=== PATIENT | female | born 1995 | race American Indian/Alaskan Native ===

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

== ENCOUNTER 2017-04-15 22:08 | Emergency (ER) | payer SELFPAY ==
[2017-04-15] MEDS ORDERED: DUONEB *Not for PRN Use IH ONE (22:52)
[2017-04-16] MEDS ORDERED: PROVENTIL IH ONE ×2 (03:43→03:45)
[2017-04-16 05:51] VITALS: BP 126/79
[2017-04-16] MEDS ORDERED: DUONEB *Not for PRN Use IH ONE (07:20)
--- NOTE | 2017-04-16 08:07 | Emergency Department Report ---
Minor Respiratory - HPI Chief Complaint: Adult Asthma Stated Complaint: ASTHMA Time Seen by Provider: 04/16/17 07:19 Duration: 2 Days Severity: mild Minor Respiratory: Yes Able to Tolerate Fluids, Yes Shortness of Breath, Yes Fever, No Rhinorrhea, No Sore Throat, No Ear Pain, No Cough, No Sick Contacts, No Hemoptysis, No Chest Pain ED Review of Systems ROS: Stated complaint: ASTHMA Other details as noted in HPI Comment: All other systems reviewed and negative Respiratory: cough, wheezing ED Past Medical Hx - Past Medical History Previous Medical History?: Yes Hx Asthma: Yes Additional medical history: Trichomonas - Surgical History Past Surgical History?: No - Social History Smoking Status: Never Smoker Substance Use Type: None - Medications Home Medications: Home Medications Medication Instructions Recorded Confirmed Last Taken Type ALBUTEROL Inhaler [Proair] 2 puff IH QID PRN #1 inhalation 04/16/17 Unknown Rx Amoxicillin [Trimox CAP] 500 mg PO BID #20 capsule 04/16/17 Unknown Rx predniSONE [Deltasone] 50 mg PO QDAY #5 tab 04/16/17 Unknown Rx Minor Respiratory Exam - Exam General: Vital signs noted. No distress. Alert and acting appropriately. HEENT: Yes Moist Mucous Membranes, No Pharyngeal Erythema, No Pharyngeal Exudates, No Rhinorrhea, No Conjuctival Injection, No Frontal Tenderness, No Maxillary Tenderness Ear: Neither TM Bulge, Neither TM Erythema, Neither EAC Pain, Neither EAC Discharge Neck: Yes Supple, No Adenopathy Lungs: Yes Good Air Exchange, Yes Wheezes, No Ronchi, No Stridor, No Cough, No Labored Respirations, No Retractions, No Use of Accessory Muscles, No Other Abnormal Lung Sounds Heart: Yes Regular, No Murmur Abdomen: Yes Normal Bowel Sounds, No Tenderness, No Peritoneal Signs Skin: No Rash, No Edema Neurologic: Alert and oriented, no deficits. Musculoskeletal: Unremarkable. ED Course Vital Signs 04/15/17 04/15/17 04/15/17 22:46 22:52 23:02 Temperature 99.9 F H Pulse Rate 111 H Pulse Rate [ 84 89 Anterior Bilateral Throughout] Pulse Rate [ Posterior Left Lower Lobe] Respiratory 20 Rate Respiratory 16 16 Rate [Anterior Bilateral Throughout] Respiratory Rate [Posterior Left Lower Lobe] Blood Pressure 130/80 O2 Sat by Pulse 98 Oximetry 04/16/17 04/16/17 04/16/17 03:43 04:02 05:49 Temperature 98.6 F Pulse Rate 96 H Pulse Rate [ Anterior Bilateral Throughout] Pulse Rate [ 86 104 H Posterior Left Lower Lobe] Respiratory 16 Rate Respiratory Rate [Anterior Bilateral Throughout] Respiratory 16 18 Rate [Posterior Left Lower Lobe] Blood Pressure 126/79 O2 Sat by Pulse 99 Oximetry 04/16/17 07:48 Temperature Pulse Rate Pulse Rate [ Anterior Bilateral Throughout] Pulse Rate [ 92 H Posterior Left Lower Lobe] Respiratory Rate Respiratory Rate [Anterior Bilateral Throughout] Respiratory 16 Rate [Posterior Left Lower Lobe] Blood Pressure O2 Sat by Pulse Oximetry - Reevaluation(s) Reevaluation #1: 04/16/17 08:36 LONG WAIT IN ER THIS GILES 2 TX EARLIER REPEAT TX FOR MILD WHEEZE W SOLUMEDROL IM WITH MUCH IMPROVEMENT VSS NO FEVER HER 90 AMBULATORY AND TAKING PO PO DIFLUCAN PER REQUEST ED Medical Decision Making - Medical Decision Making SEE NOTE - Differential Diagnosis ASTHMA AE Critical care attestation.: If time is entered above; I have spent that time in minutes in the direct care of this critically ill patient, excluding procedure time. ED Disposition Clinical Impression: Asthma Disposition: DC-01 TO HOME OR SELFCARE Is pt being admited?: No Does the pt Need Aspirin: No Condition: Stable Instructions: Asthma (ED) Prescriptions: Amoxicillin [Trimox CAP] 500 mg PO BID #20 capsule predniSONE [Deltasone] 50 mg PO QDAY #5 tab Referrals: ANAYELI LIMON MD [Primary Care Provider] - 3-5 Days Time of Disposition: 08:05
== END 2017-04-16 08:24 | disposition home or self-care (01) ==
LOC: ED 22:08
DX: J45.909 Unspecified asthma, uncomplicated (principal)
CPT/HCPCS: 94640; 96372; 99283; J2930

== ENCOUNTER 2017-06-30 19:28 | Emergency (ER) | payer MEDICAID ==
[2017-06-30 20:37] LABS: HCG Qualitative,Urine Negative (Negative)
[2017-06-30 20:44] LABS: Bilirubin,Urine NEG (Negative); Blood,Urine MOD (Negative); Color,Urine Yellow (Yellow); Mucus,Urine 3+ /HPF; Protein,Urine <15 mg/dL mg/dL (Negative)
--- NOTE | 2017-06-30 22:57 | Emergency Department Report ---
ED Female HPI - General Chief complaint: Vaginal Bleeding Stated complaint: ABD PAIN, VAGINAL BLEEDING Time Seen by Provider: 06/30/17 21:33 Source: patient Mode of arrival: Ambulatory Limitations: No Limitations - History of Present Illness Initial comments: This is a 21 y.o. female that presents with vaginal bleeding and recent STD exposure. Patient reports LMP 06/18/2017. She started spotting yesterday with sharp cramps. She noticed large clots in the toilet yesterday. Reports pain as intermittent pain that is similar to normal cramps with menses. She is currently not having pain. The bleeding have a foul odor, which caused her to come in for evaluation. Reports being incarcerated 2 weeks ago and being tested for STDs on arrival. They told her she was positive for either gonorrhea or chlamydia, and vaginitis. She was started on azithromycin and flagyl and got released prior to completing treatment. She is unsure of how many days of treatment she received. She is still having cramping and foul discharge. She is concerned she may still have a STD. MD Complaint: vaginal bleeding -: days(s) (1) Location: suprapubic (cramping) Radiation: non-radiating Severity: mild Severity scale (0 -10): 0 Quality: cramping Consistency: intermittent Improves with: none Worsens with: menstrual period Are you Now?: No Last Menstrual Period: 06/18/17 (curretly spotting) EDC: 03/25/18 Associated Symptoms: vaginal discharge, vaginal bleeding, abdominal pain ( cramping). denies: nausea/vomiting, fever/chills, headaches, loss of appetite, dysuria, hematuria, rash, seizure, shortness of breath, syncope, weakness - Related Data Sexually active: Yes Previous Rx's Medication Instructions Recorded Last Taken Type ALBUTEROL Inhaler [Proair] 2 puff IH QID PRN #1 inhalation 04/16/17 Unknown Rx Amoxicillin [Trimox CAP] 500 mg PO BID #20 capsule 04/16/17 Unknown Rx predniSONE [Deltasone] 50 mg PO QDAY #5 tab 04/16/17 Unknown Rx Fluconazole [Diflucan] 150 mg PO ONCE #1 tablet 07/01/17 Unknown Rx medroxyPROGESTERone ACETATE 10 mg PO DAILY #10 tablet 03/08/18 Unknown Rx [Medroxyprogesterone Acetate] metroNIDAZOLE [Flagyl TAB] 500 mg PO Q12HR 7 Days #14 tab 07/01/17 Unknown Rx Allergies Allergy/AdvReac Type Severity Reaction Status Date / Time No Known Allergies Allergy Unverified 09/06/14 17:22 ED Review of Systems ROS: Stated complaint: ABD PAIN, VAGINAL BLEEDING Other details as noted in HPI Constitutional: denies: chills, fever Respiratory: denies: cough, shortness of breath, wheezing Cardiovascular: denies: chest pain, palpitations Gastrointestinal: abdominal pain (cramping). denies: nausea, vomiting, diarrhea , constipation Genitourinary: abnormal menses. denies: urgency, dysuria, frequency, hematuria , discharge Musculoskeletal: denies: back pain, joint swelling, arthralgia Neurological: denies: headache, weakness, paresthesias Psychiatric: denies: anxiety, depression ED Past Medical Hx - Past Medical History Hx Asthma: Yes Additional medical history: Trichomonas - Social History Smoking Status: Current Some Day Smoker Substance Use Type: None - Medications Home Medications: Home Medications Medication Instructions Recorded Confirmed Last Taken Type ALBUTEROL Inhaler [Proair] 2 puff IH QID PRN #1 inhalation 04/16/17 Unknown Rx Amoxicillin [Trimox CAP] 500 mg PO BID #20 capsule 04/16/17 Unknown Rx predniSONE [Deltasone] 50 mg PO QDAY #5 tab 04/16/17 Unknown Rx Fluconazole [Diflucan] 150 mg PO ONCE #1 tablet 07/01/17 Unknown Rx medroxyPROGESTERone ACETATE 10 mg PO DAILY #10 tablet 07/01/17 Unknown Rx [Medroxyprogesterone Acetate] metroNIDAZOLE [Flagyl TAB] 500 mg PO Q12HR 7 Days #14 tab 07/01/17 Unknown Rx ED Physical Exam - General Limitations: No Limitations General appearance: alert, in no apparent distress - Respiratory Respiratory exam: Present: normal lung sounds bilaterally. Absent: respiratory distress, wheezes, rales, rhonchi, stridor - Cardiovascular Cardiovascular Exam: Present: regular rate, normal rhythm, normal heart sounds. Absent: systolic murmur, diastolic murmur, rubs, gallop - GI/Abdominal GI/Abdominal exam: Present: soft, normal bowel sounds. Absent: distended, tenderness, guarding, rebound, rigid, organomegaly, mass - External exam: Present: normal external exam. Absent: erythema, swelling, lesions, lacerations, ecchymosis, bleeding Speculum exam: Present: vaginal bleeding. Absent: erythema, vaginal discharge, cervical discharge, tissue, laceration Bi-manual exam: Present: normal bi-manual exam - Neurological Exam Neurological exam: Present: alert, oriented X3, normal gait - Psychiatric Psychiatric exam: Present: normal affect, normal mood ED Course Vital Signs 06/30/17 19:57 Temperature 98.2 F Pulse Rate 95 H Respiratory 20 Rate Blood Pressure 127/89 O2 Sat by Pulse 100 Oximetry ED Medical Decision Making - Radiology Data Radiology results: report reviewed US of abdomen and transvaginal IMPRESSION: Minimal fluid in the endocervical canal. Otherwise unremarkable appearing myometrium and endometrial stripe. Benign-appearing follicles both ovaries. No evidence of ovarian torsion No evidence of free fluid in the pelvis. - Medical Decision Making This is a 21 y.o. female presents with vaginal bleeding and cramping for 1 day. LMP 06/23/2017. Diagnosed with gonorrhea, or chylamida, and vaginitis while incarcerated 2 weeks ago. Started treatment and didn't complete flagyl. Given azithromycin and unsure of other med, possibly rocephin while incarcerated. Patient was examined by me. Ordered UA, HCG, G/C, and obtained wet prep via pelvic exam, results positive for acute vaginitis. US of abdomen, Minimal fluid in the endocervical canal. Otherwise unremarkable appearing myometrium and endometrial stripe. Benign-appearing follicles both ovaries. No evidence of ovarian torsion. No evidence of free fluid in the pelvis. Discussed results with patient. Start metronidazole 500 mg po bid x 7 days. Discharged home in stable condition. Discussed prevention options. F/U with [facility]. Critical care attestation.: If time is entered above; I have spent that time in minutes in the direct care of this critically ill patient, excluding procedure time. ED Disposition Clinical Impression: Acute vaginitis, Dysfunctional uterine bleeding Disposition: TO HOME OR SELFCARE Is pt being admited?: No Does the pt Need Aspirin: No Condition: Stable Instructions: Vaginitis (ED), Dysfunctional Uterine Bleeding (ED) Additional Instructions: Avoid drinking alcohol for 24 hours after completing flagyl. Take medroxyprogesterone daily for 5-10 days to help stop bleeding. Continue safe sexual intercourse. Follow up with LABORER/KEY MAN or health department in 24-72 hours. Prescriptions: Fluconazole [Diflucan] 150 mg PO ONCE #1 tablet medroxyPROGESTERone ACETATE [Medroxyprogesterone Acetate] 10 mg PO DAILY #10 tablet metroNIDAZOLE [Flagyl TAB] 500 mg PO Q12HR 7 Days #14 tab Referrals: LILIANA LECHUGA MD [Staff Physician] - 3-5 Days [facility]OL [Provider Group] - 3-5 Days Time of Disposition: 00:59 Print Language: [place] ISLANDER
--- NOTE | 2017-07-01 00:14 | Ultrasound Report ---
FINAL REPORT EXAM: US TRANSVAGINAL HISTORY: vaginal bleeding TECHNIQUE: Transvaginal imaging was obtained of the pelvis including Doppler interrogation of the adnexae. FINDINGS: The uterus is anteverted measuring 7.2 cm x 3 cm by 3.8 cm. The myometrium is homogeneous. The endometrial thickness is 1.2 mm. There is minimal fluid in the endocervical canal. Free fluid is not seen. The right ovary measures 4.3 cm x 2 cm x 2.2 cm. There are benign-appearing follicles in the right ovary the largest measuring 1.7 cm in diameter. The blood flow is normal to the right ovary. The left ovary measures 3.3 cm x 1.8 cm x 2.4 cm and contains benign follicles. Blood flow is normal to left ovary. IMPRESSION: Minimal fluid in the endocervical canal. Otherwise unremarkable appearing myometrium and endometrial stripe. Benign-appearing follicles both ovaries. No evidence of ovarian torsion No evidence of free fluid in the pelvis.
--- NOTE | 2017-07-01 00:17 | Ultrasound Report ---
FINAL REPORT EXAM: US PELVIC COMPLETE HISTORY: vaginal bleeding TECHNIQUE: Transabdominal imaging was obtained of the pelvis including Doppler interrogation of the adnexa. FINDINGS: The uterus is anteverted measuring 7.2 cm x 3 cm x 3.9 cm. The endometrial thickness is 1.2 mm. There minimal fluid in the endocervical canal. The myometrium is homogeneous. Free fluid is not seen. The right ovary is normal in size measuring 4.3 cm x 2 cm x 2.2 cm. There are benign follicles in the right ovary the largest measuring 1.7 cm in diameter. The blood flow is normal to the right ovary. The left ovary is normal size contour and echotexture measuring 3.3 cm x 1.8 cm x 2.4 cm. There are benign-appearing follicles left ovary. IMPRESSION: Minimal fluid in the endocervical canal. Otherwise normal-appearing endometrium and myometrium. Benign-appearing follicles both ovaries. No evidence of ovarian torsion. No evidence of free fluid in the pelvis.
[2017-07-01 02:38] VITALS: BP 130/79
== END 2017-07-01 01:20 | disposition home or self-care (01) ==
LOC: ED 19:28
DX: N93.8 Other specified abnormal uterine and vaginal bleeding (principal); N76.0 Acute vaginitis; J45.909 Unspecified asthma, uncomplicated; F17.200 Nicotine dependence, unspecified, uncomplicated
CPT/HCPCS: 76830; 76856; 81001; 81025; 87210; 87591

== ENCOUNTER 2018-07-12 17:37 | Emergency (ER) | payer OTHER ==
[2018-07-12 18:03] VITALS: BP 120/81
--- NOTE | 2018-07-12 18:06 | Emergency Department Report ---
Chief Complaint: Chest Pain Stated Complaint: CHEST PALPITATION Time Seen by Provider: 07/12/18 18:01 - HPI History of Present Illness: This is a 22 y.o. female that presents with palpitations and spasms to abdomen x 1 month. She took a home test which was negative today. Patient was recently diagnosed with BV and vaginal yeast infection. She took her last dose of medication today. - ROS Review of Systems: palpitations - Exam Vital Signs: Vital Signs 07/12/18 18:02 Temperature 97.9 F Pulse Rate 78 Respiratory 18 Rate Blood Pressure 120/81 O2 Sat by Pulse 100 Oximetry MSE screening note: Focused history and physical exam performed. Due to findings the following was ordered: EKG & CXR Fast track for further evaluation. ED Disposition for MSE Condition: Stable
--- NOTE | 2018-07-12 18:48 | XRay Report ---
PROCEDURE: XR CHEST 1V AP TECHNIQUE: Single view HISTORY: Chest Pain COMPARISONS: None FINDINGS: Trachea midline. Heart size normal. No pneumothorax. No sizable effusion. No acute airspace disease. Mild scoliosis. No acute bony abnormality. IMPRESSION: No active pulmonary disease.. This document is electronically signed by Evelio Jacobo MD., July 12 2018 06:46:03 PM ET
[2018-07-12] MEDS ORDERED: ALUM-MAG HYDROX-SIMETH 200-200-20MG/5ML PO ONE (19:53)
[2018-07-12] MEDS ORDERED: LIDOCAINE VISCOUS 2% PO ONE (19:53)
[2018-07-12] MEDS ORDERED: ZOFRAN ODT PO ONE (19:53)
--- NOTE | 2018-07-12 19:53 | Emergency Department Report ---
ED General Adult HPI - General Chief complaint: Chest Pain Stated complaint: CHEST PALPITATION Time Seen by Provider: 07/12/18 18:01 Source: patient Mode of arrival: Ambulatory Limitations: No Limitations - History of Present Illness Initial comments: This is 22-year-old female who presents with chest pain palpitations intermittently for the past 2-3 months patient does smoke THC this does have a history of asthma there is no diaphoresis no nausea vomiting no chest pain at this time chest pain is for routine exacerbated by activity and movement patient does endorse increasing GERD symptoms palpitations started is not taking Pepcid at this time by history. Unknown there is no productive cough no wheezing at this time Onset/Timin -: month(s) Location: chest Radiation: non-radiation Severity scale (0 -10): 3 Quality: sharp Consistency: intermittent Improves with: rest Worsens with: movement Associated Symptoms: chest pain, cough Treatments Prior to Arrival: none - Related Data Previous Rx's Medication Instructions Recorded Last Taken Type ALBUTEROL Inhaler (OR & NICU) 2 puff IH QID PRN #1 inhalation 04/16/17 Unknown Rx [Proair] Amoxicillin [Trimox CAP] 500 mg PO BID #20 capsule 04/16/17 Unknown Rx predniSONE [Deltasone] 50 mg PO QDAY #5 tab 04/16/17 Unknown Rx Fluconazole [Diflucan] 150 mg PO ONCE #1 tablet 07/01/17 Unknown Rx medroxyPROGESTERone ACETATE 10 mg PO DAILY #10 tablet 07/01/17 Unknown Rx [Medroxyprogesterone Acetate] metroNIDAZOLE [Flagyl TAB] 500 mg PO Q12HR 7 Days #14 tab 07/01/17 Unknown Rx Metoclopramide [Reglan] 10 mg PO ACHS PRN #30 tablet 07/12/18 Unknown Rx Naproxen [Naprosyn] 500 mg PO BID PRN #30 tablet 07/12/18 Unknown Rx diphenhydrAMINE [Benadryl CAP] 25 mg PO Q6HR PRN #30 capsule 07/12/18 Unknown Rx Allergies Allergy/AdvReac Type Severity Reaction Status Date / Time No Known Allergies Allergy Unverified 09/06/14 17:22 ED Review of Systems ROS: Stated complaint: CHEST PALPITATION Other details as noted in HPI Constitutional: denies: chills, fever Eyes: denies: eye pain, eye discharge, vision change ENT: denies: ear pain, throat pain Respiratory: denies: cough, shortness of breath, wheezing Cardiovascular: chest pain, palpitations Endocrine: no symptoms reported Gastrointestinal: denies: abdominal pain, nausea, vomiting, diarrhea, constipation, hematemesis Genitourinary: denies: urgency, dysuria, discharge Musculoskeletal: denies: back pain, joint swelling, arthralgia Skin: denies: rash, lesions Neurological: denies: headache, weakness, paresthesias Psychiatric: denies: anxiety, depression Hematological/Lymphatic: denies: easy bleeding, easy bruising ED Past Medical Hx - Past Medical History Previous Medical History?: Yes Hx Asthma: Yes Additional medical history: Trichomonas - Surgical History Past Surgical History?: No - Social History Smoking Status: Never Smoker Substance Use Type: Alcohol - Medications Home Medications: Home Medications Medication Instructions Recorded Confirmed Last Taken Type ALBUTEROL Inhaler (OR & NICU) 2 puff IH QID PRN #1 inhalation 04/16/17 Unknown Rx [Proair] Amoxicillin [Trimox CAP] 500 mg PO BID #20 capsule 04/16/17 Unknown Rx predniSONE [Deltasone] 50 mg PO QDAY #5 tab 04/16/17 Unknown Rx Fluconazole [Diflucan] 150 mg PO ONCE #1 tablet 07/01/17 Unknown Rx medroxyPROGESTERone ACETATE 10 mg PO DAILY #10 tablet 07/01/17 Unknown Rx [Medroxyprogesterone Acetate] metroNIDAZOLE [Flagyl TAB] 500 mg PO Q12HR 7 Days #14 tab 07/01/17 Unknown Rx Metoclopramide [Reglan] 10 mg PO ACHS PRN #30 tablet 07/12/18 Unknown Rx Naproxen [Naprosyn] 500 mg PO BID PRN #30 tablet 07/12/18 Unknown Rx diphenhydrAMINE [Benadryl CAP] 25 mg PO Q6HR PRN #30 capsule 07/12/18 Unknown Rx ED Physical Exam - General Limitations: No Limitations General appearance: alert, in no apparent distress - Head Head exam: Present: atraumatic, normocephalic - Eye Eye exam: Present: normal appearance, PERRL, EOMI Pupils: Present: normal accommodation - ENT ENT exam: Present: normal orophraynx, mucous membranes moist, TM's normal bilaterally, normal external ear exam - Neck Neck exam: Present: normal inspection, full ROM. Absent: tenderness, lymphadenopathy, thyromegaly - Respiratory Respiratory exam: Present: normal lung sounds bilaterally. Absent: respiratory distress, wheezes, rhonchi, stridor, chest wall tenderness, prolonged expiratory - Cardiovascular Cardiovascular Exam: Present: regular rate, normal rhythm, normal heart sounds. Absent: systolic murmur, diastolic murmur, rubs, gallop - GI/Abdominal GI/Abdominal exam: Present: soft, normal bowel sounds. Absent: distended, tenderness, guarding, rebound, rigid, bruit, hernia - Rectal Rectal exam: Present: deferred - Extremities Exam Extremities exam: Present: normal inspection - Back Exam Back exam: Present: normal inspection, full ROM. Absent: tenderness, CVA tenderness (R), CVA tenderness (L), muscle spasm, paraspinal tenderness, rash noted - Neurological Exam Neurological exam: Present: alert, oriented X3, CN II-XII intact, normal gait, motor sensory deficit. Absent: reflexes normal - Expanded Neurological Exam Expanded Patient oriented to: Present: person, place, time Speech: Present: fluid speech Cranial nerves: EOM's Intact: Normal, Gag Reflex: Normal, Tongue Deviation: Normal, Nystagmus: Normal, Facial Sensation: Normal Cerebellar function: Finger to Nose: Normal, Heel to Spence: Normal, Romberg: Normal Upper motor neuron: Domenico Neglect: Normal, Pronator Drift: Normal, Babinski Sign: Normal, Sensory Extinction: Normal Sensory exam: Upper Extremity Light Touch: Normal, Upper Extremity Pin Prick: Normal, Upper Extremity Temperature: Normal, UE 2 Point Discrimination: Normal, Lower Extremity Light Touch: Normal, Lower Extremity Pin Prick: Normal, Lower Extremity Temperature: Normal, LE 2 Point Discrimination: Normal Motor strength exam: RUE: 5, LUE: 5, RLE: 5, LLE: 5 Best Eye Response (Parmele): (4) open spontaneously Best Motor Response (Parmele): (6) obeys commands Best Verbal Response (Peterson): (5) oriented Peterson Total: 15 - Psychiatric Psychiatric exam: Present: normal affect, normal mood - Skin Skin exam: Present: warm, dry, intact, normal color. Absent: rash ED Course Vital Signs 07/12/18 07/12/18 18:02 19:43 Temperature 97.9 F Pulse Rate 78 Respiratory 18 18 Rate Blood Pressure 120/81 O2 Sat by Pulse 100 Oximetry ED Medical Decision Making - Lab Data Result diagrams: 07/12/18 18:34 07/12/18 18:34 Labs 07/12/18 07/12/18 07/12/18 18:34 18:34 18:34 WBC 6.1 RBC 4.70 Hgb 13.4 Hct 40.8 MCV 87 MCH 29 MCHC 33 RDW 20.0 H Plt Count 367 Lymph % (Auto) 40.0 H [place] % (Auto) 7.3 Eos % (Auto) 2.6 Baso % (Auto) 0.5 Lymph # 2.5 [place] # 0.4 Eos # 0.2 Baso # 0.0 Seg Neutrophils % 49.6 Seg Neutrophils # 3.0 Sodium 139 Potassium 3.6 Chloride 99.4 Carbon Dioxide 25 Anion Gap 18 BUN 9 Creatinine 0.5 L Estimated GFR > 60 BUN/Creatinine Ratio 18 Glucose 72 Calcium 9.5 Total Bilirubin 0.30 AST 16 ALT 12 Alkaline Phosphatase 48 Total Protein 8.1 Albumin 4.6 Albumin/Globulin Ratio 1.3 TSH 3.470 - EKG Data EKG shows normal: sinus rhythm, axis, intervals, QRS complexes, ST-T waves Rate: normal - EKG Data When compared to previous EKG there are: previous EKG unavailable Interpretation: normal EKG (ekg interp by ed attending NSR no ST Elevation no ectopy ) - Radiology Data Radiology results: report reviewed, image reviewed atient: SYED PEARL MR#: [id number] : 1995 Acct:[id number] Age/Sex: 22 / F ADM Date: 07/12/18 Loc: ED Attending Dr: Ordering Physician: ERMELINDA ROB Date of Service: 07/12/18 Procedure(s): XR chest 1V ap Accession Number(s): [id number] cc: ERMELINDA ROB Fluoro Time In Minutes: PROCEDURE: XR CHEST 1V AP TECHNIQUE: Single view HISTORY: Chest Pain COMPARISONS: None FINDINGS: Trachea midline. Heart size normal. No pneumothorax. No sizable effusion. No a cute airspace disease. Mild scoliosis. No acute bony abnormality. IMPRESSION: No active pulmonary disease.. This document is electronically signed by Evelio Charles MD., July 12 2018 06:46:03 PM ET Transcribed By: HJ Dictated By: EVELIO CHARLES MD Electronically Authenticated By: EVELIO CHARLES MD Signed Date/Time: 07/12/181847 DD/ 22 TD/TT: 07/12/181826 - Medical Decision Making cxr: normal no infiltrates no opacities, ekg: NSR , no ST elevation , no ectopy, pain is improve, plan, naproxen, pepcid stop smoking follow up with pcp in 2-3 days return to ed if symptoms worsen, pt will follow up with pcp in 2-3 days pt given referral to [facility] will follow up tomorrow. tp is currently a/o x 3 ambulatory with steady gait. , Critical care attestation.: If time is entered above; I have spent that time in minutes in the direct care of this critically ill patient, excluding procedure time. ED Disposition Clinical Impression: Chest wall pain Headache Qualifiers: Headache type: unspecified Headache chronicity pattern: acute headache Intractability: not intractable Qualified Code(s): R51 - Headache Disposition: DC- TO HOME OR SELFCARE Is pt being admited?: No Does the pt Need Aspirin: No Condition: Stable Instructions: Chest Pain (ED), Costochondritis (ED) Prescriptions: diphenhydrAMINE [Benadryl CAP] 25 mg PO Q6HR PRN #30 capsule PRN Reason: Headache Naproxen [Naprosyn] 500 mg PO BID PRN #30 tablet PRN Reason: Headache Metoclopramide [Reglan] 10 mg PO ACHS PRN #30 tablet PRN Reason: Headache Referrals: [facility] [Provider Group] - 3-5 Days Forms: Work/School Release Form(ED) Time of Disposition: 22:17
[2018-07-12 21:26] LABS: Basophils % (Auto) 0.5 % (0.0-1.8); Eosinophils # (Auto) 0.2 K/mm3 (0.0-0.4); Eosinophils % (Auto) 2.6 % (0.0-4.3); Hematocrit 40.8 % (30.3-42.9); Hemoglobin 13.4 gm/dl (10.1-14.3); Lymphocytes # (Auto) 2.5 K/mm3 (1.2-5.4); Mean Corpuscular HGB Conc 33 % (30-34); Mean Corpuscular Volume 87 fl (79-97); Monocytes # (Auto) 0.4 K/mm3 (0.0-0.8); Monocytes % (Auto) 7.3 % (0.0-7.3); Platelet Count 367 K/mm3 (140-440)
[2018-07-12 21:52] LABS: Alanine Aminotransferase 12 units/L (7-56); Albumin 4.6 g/dL (3.9-5); BUN/Creatinine Ratio 18; Blood Urea Nitrogen 9 mg/dL (7-17); Calcium 9.5 mg/dL (8.4-10.2); Hemolysis Index 4
== END 2018-07-12 22:30 | disposition home or self-care (01) ==
LOC: ED 17:37
DX: R07.89 Other chest pain (principal); R51 Headache; R00.2 Palpitations; R05 Cough
CPT/HCPCS: 36415; 71045; 80053; 84443; 85025; 93005; 93010; Q0162

== ENCOUNTER 2019-03-29 16:02 | Emergency (ER) | payer SELFPAY ==
[2019-03-29 16:56] VITALS: BP 129/85
--- NOTE | 2019-03-29 16:57 | Emergency Department Report ---
Blank Doc - Documentation Documentation: 23-year-old female that presents with abdominal pain and n/v x1 week. This initial assessment/diagnostic orders/clinical plan/treatment(s) is/are subject to change based on patient's health status, clinical progression and re- assessment by fellow clinical providers in the ED. Further treatment and workup at subsequent clinical providers discretion. Patient/guardians urged not to elope from the ED as their condition may be serious if not clinically assessed and managed. Initial orders include: 1- Patient sent to [facility] for further evaluation and treatment 2- UA 3- labs
[2019-03-29 17:40] LABS: Basophils % (Auto) 0.4 % (0.0-1.8); Eosinophils # (Auto) 0.2 K/mm3 (0.0-0.4); Eosinophils % (Auto) 2.5 % (0.0-4.3); Hematocrit 35.7 % (30.3-42.9); Hemoglobin 11.7 gm/dl (10.1-14.3); Lymphocytes % (Auto) 24.4 % (13.4-35.0); Mean Corpuscular HGB Conc 33 % (30-34); Mean Corpuscular Volume 89 fl (79-97); Monocytes # (Auto) 0.6 K/mm3 (0.0-0.8); Platelet Count 387 K/mm3 (140-440); Red Blood Count 4.03 M/mm3 (3.65-5.03); Red Cell Distribution Width 15.2 % (13.2-15.2)
[2019-03-29 17:59] LABS: Bilirubin,Urine NEG (Negative); Blood,Urine NEG (Negative); Color,Urine Yellow (Yellow); Mucus,Urine FEW /HPF; Protein,Urine <15 mg/dL mg/dL (Negative); Urobilinogen,Urine < 2.0 mg/dL (<2.0)
[2019-03-29 18:21] LABS: Alanine Aminotransferase 7 units/L (7-56); Albumin 3.9 g/dL (3.9-5); BUN/Creatinine Ratio 14; Blood Urea Nitrogen 7 mg/dL (7-17); Calcium 8.6 mg/dL (8.4-10.2); Hemolysis Index 20
--- NOTE | 2019-03-29 20:15 | Emergency Department Report ---
ED General Adult HPI - General Chief complaint: Abdominal Pain Stated complaint: ABD PAIN Time Seen by Provider: 03/29/19 16:57 Source: patient Mode of arrival: Ambulatory Limitations: No Limitations - History of Present Illness Initial comments: 23-year-old -[place] female patient without significant past medical history planes of abdominal pain during her menstrual cycle for the past 3 months. Denies heavy vaginal bleeding, vaginal discharge, dysuria, hematuria, or bleeding in between her cycles. She states she has been evaluated for her symptoms at [facility] 2 months ago and is requesting an ultrasound today to rule out polycystic ovarian syndrome. She currently rates her pain as a 2/10 in severity and states that her cycle ended 2 days ago. She states that the pain usually lasts 3 days after her menstrual cycle and then subsides. She states Tylenol is not helping with her pain. She does admit to urinary frequency. -: Sudden - Related Data Previous Rx's Medication Instructions Recorded Last Taken Type ALBUTEROL Inhaler (OR & NICU) 2 puff IH QID PRN #1 inhalation 04/16/17 Unknown Rx [Proair] Amoxicillin [Trimox CAP] 500 mg PO BID #20 capsule 04/16/17 Unknown Rx predniSONE [Deltasone] 50 mg PO QDAY #5 tab 04/16/17 Unknown Rx Fluconazole [Diflucan] 150 mg PO ONCE #1 tablet 07/01/17 Unknown Rx medroxyPROGESTERone ACETATE 10 mg PO DAILY #10 tablet 07/01/17 Unknown Rx [Medroxyprogesterone Acetate] metroNIDAZOLE [Flagyl TAB] 500 mg PO Q12HR 7 Days #14 tab 07/01/17 Unknown Rx Metoclopramide [Reglan] 10 mg PO ACHS PRN #30 tablet 07/12/18 Unknown Rx Naproxen [Naprosyn] 500 mg PO BID PRN #30 tablet 07/12/18 Unknown Rx diphenhydrAMINE [Benadryl CAP] 25 mg PO Q6HR PRN #30 capsule 07/12/18 Unknown Rx Fluconazole [Diflucan TAB] 150 mg PO ONCE #1 tablet 03/29/19 Unknown Rx Sulfamethoxazole/Trimethoprim 1 each PO BID 5 Days #10 tablet 03/29/19 Unknown Rx [Bactrim DS TAB] Allergies Allergy/AdvReac Type Severity Reaction Status Date / Time No Known Allergies Allergy Unverified 09/06/14 17:22 ED Review of Systems ROS: Stated complaint: ABD PAIN Other details as noted in HPI Comment: All other systems reviewed and negative Gastrointestinal: as per HPI Genitourinary: as per HPI ED Past Medical Hx - Past Medical History Previous Medical History?: No Hx Asthma: Yes Additional medical history: Trichomonas - Surgical History Past Surgical History?: No - Social History Smoking Status: Never Smoker Substance Use Type: None - Medications Home Medications: Home Medications Medication Instructions Recorded Confirmed Last Taken Type ALBUTEROL Inhaler (OR & NICU) 2 puff IH QID PRN #1 inhalation 04/16/17 Unknown Rx [Proair] Amoxicillin [Trimox CAP] 500 mg PO BID #20 capsule 04/16/17 Unknown Rx predniSONE [Deltasone] 50 mg PO QDAY #5 tab 04/16/17 Unknown Rx Fluconazole [Diflucan] 150 mg PO ONCE #1 tablet 07/01/17 Unknown Rx medroxyPROGESTERone ACETATE 10 mg PO DAILY #10 tablet 07/01/17 Unknown Rx [Medroxyprogesterone Acetate] metroNIDAZOLE [Flagyl TAB] 500 mg PO Q12HR 7 Days #14 tab 07/01/17 Unknown Rx Metoclopramide [Reglan] 10 mg PO ACHS PRN #30 tablet 07/12/18 Unknown Rx Naproxen [Naprosyn] 500 mg PO BID PRN #30 tablet 07/12/18 Unknown Rx diphenhydrAMINE [Benadryl CAP] 25 mg PO Q6HR PRN #30 capsule 07/12/18 Unknown Rx Fluconazole [Diflucan TAB] 150 mg PO ONCE #1 tablet 03/29/19 Unknown Rx Sulfamethoxazole/Trimethoprim 1 each PO BID 5 Days #10 tablet 03/29/19 Unknown Rx [Bactrim DS TAB] ED Physical Exam - General Limitations: No Limitations General appearance: alert, in no apparent distress - Head Head exam: Present: atraumatic, normocephalic - Eye Eye exam: Present: normal appearance. Absent: scleral icterus - ENT ENT exam: Present: mucous membranes moist - Neck Neck exam: Present: normal inspection - Respiratory Respiratory exam: Present: normal lung sounds bilaterally. Absent: respiratory distress - Cardiovascular Cardiovascular Exam: Present: regular rate, normal rhythm. Absent: systolic murmur, diastolic murmur, rubs, gallop - GI/Abdominal GI/Abdominal exam: Present: soft, normal bowel sounds. Absent: distended, tenderness, guarding, rebound, rigid, mass - Extremities Exam Extremities exam: Present: full ROM - Back Exam Back exam: Present: full ROM - Neurological Exam Neurological exam: Present: alert, oriented X3 - Psychiatric Psychiatric exam: Present: normal affect, normal mood - Skin Skin exam: Present: warm, dry, intact, normal color. Absent: rash ED Course Vital Signs 03/29/19 16:54 Temperature 98.7 F Pulse Rate 98 H Respiratory 18 Rate Blood Pressure 129/85 O2 Sat by Pulse 99 Oximetry ED Medical Decision Making - Lab Data Result diagrams: 03/29/19 17:02 03/29/19 17:02 Lab Results 03/29/19 03/29/19 03/29/19 Range/Units 17:02 17:02 17:02 WBC 8.3 (4.5-11.0) K/mm3 RBC 4.03 (3.65-5.03) M/mm3 Hgb 11.7 (10.1-14.3) gm/dl Hct 35.7 (30.3-42.9) % MCV 89 (79-97) fl MCH 29 (28-32) pg MCHC 33 (30-34) % RDW 15.2 (13.2-15.2) % Plt Count 387 (140-440) K/mm3 Lymph % (Auto) 24.4 (13.4-35.0) % [place] % (Auto) 7.0 (0.0-7.3) % Eos % (Auto) 2.5 (0.0-4.3) % Baso % (Auto) 0.4 (0.0-1.8) % Lymph # 2.0 (1.2-5.4) K/mm3 [place] # 0.6 (0.0-0.8) K/mm3 Eos # 0.2 (0.0-0.4) K/mm3 Baso # 0.0 (0.0-0.1) K/mm3 Seg Neutrophils % 65.7 (40.0-70.0) % Seg Neutrophils # 5.4 (1.8-7.7) K/mm3 Sodium 140 (137-145) mmol/L Potassium 3.8 (3.6-5.0) mmol/L Chloride 103.9 (98-107) mmol/L Carbon Dioxide 21 L (22-30) mmol/L Anion Gap 19 mmol/L BUN 7 (7-17) mg/dL Creatinine 0.5 L (0.7-1.2) mg/dL Estimated GFR > 60 ml/min BUN/Creatinine Ratio 14 % Glucose 85 (65-100) mg/dL Calcium 8.6 (8.4-10.2) mg/dL Total Bilirubin 0.30 (0.1-1.2) mg/dL AST 15 (5-40) units/L ALT 7 (7-56) units/L Alkaline Phosphatase 44 (35-129) units/L Total Protein 7.2 (6.3-8.2) g/dL Albumin 3.9 (3.9-5) g/dL Albumin/Globulin Ratio 1.2 % Lipase 14 (13-60) units/L HCG, Qual Negative (Negative) Urine Color (Yellow) Urine Turbidity (Clear) Urine pH (5.0-7.0) Ur Specific [place] (1.003-1.030) Urine Protein (Negative) mg/dL Urine Glucose (UA) (Negative) mg/dL Urine Ketones (Negative) mg/dL Urine Blood (Negative) Urine Nitrite (Negative) Urine Bilirubin (Negative) Urine Urobilinogen (<2.0) mg/dL Ur Leukocyte Esterase (Negative) Urine WBC (Auto) (0.0-6.0) /HPF Urine RBC (Auto) (0.0-6.0) /HPF U Epithel Cells (Auto) (0-13.0) /HPF Urine Mucus /HPF 03/29/19 Range/Units 17:36 WBC (4.5-11.0) K/mm3 RBC (3.65-5.03) M/mm3 Hgb (10.1-14.3) gm/dl Hct (30.3-42.9) % MCV (79-97) fl MCH (28-32) pg MCHC (30-34) % RDW (13.2-15.2) % Plt Count (140-440) K/mm3 Lymph % (Auto) (13.4-35.0) % [place] % (Auto) (0.0-7.3) % Eos % (Auto) (0.0-4.3) % Baso % (Auto) (0.0-1.8) % Lymph # (1.2-5.4) K/mm3 [place] # (0.0-0.8) K/mm3 Eos # (0.0-0.4) K/mm3 Baso # (0.0-0.1) K/mm3 Seg Neutrophils % (40.0-70.0) % Seg Neutrophils # (1.8-7.7) K/mm3 Sodium (137-145) mmol/L Potassium (3.6-5.0) mmol/L Chloride (98-107) mmol/L Carbon Dioxide (22-30) mmol/L Anion Gap mmol/L BUN (7-17) mg/dL Creatinine (0.7-1.2) mg/dL Estimated GFR ml/min BUN/Creatinine Ratio % Glucose (65-100) mg/dL Calcium (8.4-10.2) mg/dL Total Bilirubin (0.1-1.2) mg/dL AST (5-40) units/L ALT (7-56) units/L Alkaline Phosphatase (35-129) units/L Total Protein (6.3-8.2) g/dL Albumin (3.9-5) g/dL Albumin/Globulin Ratio % Lipase (13-60) units/L HCG, Qual (Negative) Urine Color Yellow (Yellow) Urine Turbidity Clear (Clear) Urine pH 8.0 H (5.0-7.0) Ur Specific [place] 1.018 (1.003-1.030) Urine Protein <15 mg/dl (Negative) mg/dL Urine Glucose (UA) Neg (Negative) mg/dL Urine Ketones Neg (Negative) mg/dL Urine Blood Neg (Negative) Urine Nitrite Neg (Negative) Urine Bilirubin Neg (Negative) Urine Urobilinogen < 2.0 (<2.0) mg/dL Ur Leukocyte Esterase Tr (Negative) Urine WBC (Auto) 16.0 H (0.0-6.0) /HPF Urine RBC (Auto) 4.0 (0.0-6.0) /HPF U Epithel Cells (Auto) 2.0 (0-13.0) /HPF Urine Mucus Few /HPF - Medical Decision Making 23-year-old patient here with complaints of painful menstrual cycles for the past 3 months. She denies any fever vaginal bleeding, vaginal discharge, dysuria, or concerns for STDs. UTI noted on UA, labs otherwise are normal. Patient's pain is minimal at 82/10 in severity currently and abdominal exam is without tenderness or rebound. Vitals are WNL. Patient to discharge home with treatment for UTI. Recommend follow-up with primary care or [facility] for further evaluation of painful menstrual cycles. Also recommend ibuprofen as needed for pain. Ravinder strict return precautions in detail with patient who states understanding. Critical care attestation.: If time is entered above; I have spent that time in minutes in the direct care of this critically ill patient, excluding procedure time. ED Disposition Clinical Impression: Painful menstrual periods UTI (urinary tract infection) Qualifiers: Urinary tract infection type: acute cystitis Hematuria presence: without hematuria Qualified Code(s): N30.00 - Acute cystitis without hematuria Disposition: TO HOME OR SELFCARE Is pt being admited?: No Condition: Stable Instructions: Urinary Tract Infection in Women (ED), Dysmenorrhea (ED) Prescriptions: Sulfamethoxazole/Trimethoprim [Bactrim DS TAB] 1 each PO BID 5 Days #10 tablet Fluconazole [Diflucan TAB] 150 mg PO ONCE #1 tablet Referrals: [facility] [Provider Group] - 3-5 Days
== END 2019-03-29 20:30 | disposition home or self-care (01) ==
LOC: ED 16:02
DX: N39.0 Urinary tract infection, site not specified (principal); N94.6 Dysmenorrhea, unspecified; J45.909 Unspecified asthma, uncomplicated
CPT/HCPCS: 36415; 80053; 81001; 83690; 84703; 85025; 87086

== ENCOUNTER 2019-06-09 16:23 | Emergency (ER) | payer SELFPAY ==
--- NOTE | 2019-06-09 17:13 | Event Note ---
ED Screening Note ED Screening Note: 23 yo female with LUNA, abdominal pain, vaginal bleeding, insomnia. This initial assessment/diagnostic orders/clinical plan/treatment(s) is/are subject to change based on patients health status, clinical progression and re- assessment by fellow clinical providers in the ED. Further treatment and workup at subsequent clinical providers discretion. Patient/guardian urged not to elope from the ED as their condition may be serious if not clinically assessed and managed. Initial orders include: ua upt
[2019-06-09 17:14] VITALS: BP 127/78
[2019-06-09 18:45] LABS: HCG Qualitative,Urine Negative (Negative)
[2019-06-09 18:48] LABS: Bacteria,Urine 1+ /HPF (Negative); Bilirubin,Urine NEG (Negative); Blood,Urine LG (Negative); Color,Urine Yellow (Yellow); Mucus,Urine 3+ /HPF; Protein,Urine <15 mg/dL mg/dL (Negative); Urobilinogen,Urine < 2.0 mg/dL (<2.0)
[2019-06-09 18:49] LABS: RBC,Urine > 182.0 /HPF (0.0-6.0)
[2019-06-09] MEDS ORDERED: ONDANSETRON 4 MG ODT TAB PO ONE (19:45)
[2019-06-09] MEDS ORDERED: HYDROcodone/ACETAMINOPHEN 5-325 MG TAB PO ONE (19:45)
[2019-06-09] MEDS ORDERED: IBUPROFEN 600 MG TAB PO ONE (19:46)
[2019-06-09 20:21] LABS: Basophils # (Auto) 0.1 K/mm3 (0.0-0.1); Basophils % (Auto) 1.1 % (0.0-1.8); Eosinophils # (Auto) 0.1 K/mm3 (0.0-0.4); Eosinophils % (Auto) 1.6 % (0.0-4.3); Hematocrit 38.1 % (30.3-42.9); Hemoglobin 12.4 gm/dl (10.1-14.3); Lymphocytes # (Auto) 2.4 K/mm3 (1.2-5.4); Lymphocytes % (Auto) 34.9 % (13.4-35.0); Mean Corpuscular HGB Conc 33 % (30-34); Mean Corpuscular Volume 88 fl (79-97); Monocytes # (Auto) 0.7 K/mm3 (0.0-0.8); Monocytes % (Auto) 9.5 % (0.0-7.3); Platelet Count 330 K/mm3 (140-440); Red Blood Count 4.31 M/mm3 (3.65-5.03); Red Cell Distribution Width 16.7 % (13.2-15.2)
[2019-06-09 20:51] LABS: Alanine Aminotransferase 7 units/L (7-56); Albumin 4.2 g/dL (3.9-5); BUN/Creatinine Ratio 13; Blood Urea Nitrogen 8 mg/dL (7-17); Calcium 9.1 mg/dL (8.4-10.2); Hemolysis Index 3
--- NOTE | 2019-06-09 21:30 | Emergency Department Report ---
ED Female HPI - General Chief complaint: Vaginal Bleeding Stated complaint: FELISHA/VAGINAL BLEEDING/CRAMPS Source: patient Mode of arrival: Ambulatory Limitations: No Limitations - History of Present Illness Initial comments: This is a nulliparous 23-year-old -Maur[place] female with no past medical history except chronic intermittent metrorrhagia and dysmenorrhea who presented to the ED with persistent pelvic pain that radiates to the low back with heavy vaginal bleeding for the last 3 days. Patient states that in the last 3 months her menstrual cycle has been more frequent sometimes occurs twice a month. Patient states that her last menstrual cycle was over 1 week ago and that in the last 3 days she started having vaginal bleeding which has been heavier than usu al the last 24 hours. Patient denies dizziness, syncope, chest pain, shortness of breath, nausea, vomiting, headache, dysuria, urinary frequency and urgency, vaginal discharge, fever and chills, cough or sore throat. MD Complaint: vaginal bleeding, pelvic pain -: Sudden, days(s) (4) Location: suprapubic Radiation: suprapubic Severity: severe Severity scale (0 -10): 8 Quality: cramping, sharp, aching Consistency: constant Improves with: none Worsens with: none Are you Now?: No Last Menstrual Period: 06/08/19 EDC: 03/14/20 Associated Symptoms: denies other symptoms, vaginal bleeding, abdominal pain (suprapubic). denies: vaginal discharge, nausea/vomiting, fever/chills, headaches, loss of appetite, dysuria, hematuria, shortness of breath, syncope, weakness - Related Data Sexually active: Yes : 0 Para: 0 A: 0 Previous Rx's Medication Instructions Recorded Last Taken Type Albuterol INH(or & Nicu Only) 2 puff IH QID PRN #1 inhalation 04/16/17 Unknown Rx [Proair] Amoxicillin [Trimox CAP] 500 mg PO BID #20 capsule 04/16/17 Unknown Rx predniSONE [Deltasone] 50 mg PO QDAY #5 tab 04/16/17 Unknown Rx Fluconazole [Diflucan] 150 mg PO ONCE #1 tablet 07/01/17 Unknown Rx medroxyPROGESTERone ACETATE 10 mg PO DAILY #10 tablet 07/01/17 Unknown Rx [Medroxyprogesterone Acetate] metroNIDAZOLE [Flagyl TAB] 500 mg PO Q12HR 7 Days #14 tab 07/01/17 Unknown Rx Metoclopramide [Reglan] 10 mg PO ACHS PRN #30 tablet 07/12/18 Unknown Rx Naproxen [Naprosyn] 500 mg PO BID PRN #30 tablet 07/12/18 Unknown Rx diphenhydrAMINE [Benadryl CAP] 25 mg PO Q6HR PRN #30 capsule 07/12/18 Unknown Rx Fluconazole [Diflucan TAB] 150 mg PO ONCE #1 tablet 03/29/19 Unknown Rx Sulfamethoxazole/Trimethoprim 1 each PO BID 5 Days #10 tablet 03/29/19 Unknown Rx [Bactrim DS TAB] Acetaminophen/Codeine [Tylenol 1 - 2 tab PO Q6H PRN #12 tab 06/09/19 Unknown Rx /Codeine # 3 tab] Ibuprofen [Motrin] 600 mg PO Q8H PRN #24 tablet 06/09/19 Unknown Rx medroxyPROGESTERone ACETATE 10 mg PO DAILY #10 tablet 06/09/19 Unknown Rx [Medroxyprogesterone Acetate] Allergies Allergy/AdvReac Type Severity Reaction Status Date / Time No Known Allergies Allergy Verified 06/09/19 16:24 ED Review of Systems ROS: Stated complaint: FELISHA/VAGINAL BLEEDING/CRAMPS Other details as noted in HPI Constitutional: denies: chills, fever Eyes: denies: eye pain, eye discharge, vision change ENT: denies: ear pain, throat pain Respiratory: denies: cough, shortness of breath, wheezing Cardiovascular: denies: chest pain, palpitations Endocrine: no symptoms reported Gastrointestinal: abdominal pain (suprapubic pain). denies: nausea, vomiting, diarrhea Genitourinary: abnormal menses (heavy vaginal bleeding). denies: urgency, dysuria, discharge Musculoskeletal: denies: back pain, joint swelling, arthralgia Skin: denies: rash, lesions Neurological: denies: headache, weakness, paresthesias Psychiatric: denies: anxiety, depression Hematological/Lymphatic: denies: easy bleeding, easy bruising ED Past Medical Hx - Past Medical History Hx Asthma: Yes Additional medical history: Trichomonas - Social History Smoking Status: Current Every Day Smoker Substance Use Type: Alcohol - Medications Home Medications: Home Medications Medication Instructions Recorded Confirmed Last Taken Type Albuterol INH(or & Nicu Only) 2 puff IH QID PRN #1 inhalation 04/16/17 Unknown Rx [Proair] Amoxicillin [Trimox CAP] 500 mg PO BID #20 capsule 04/16/17 Unknown Rx predniSONE [Deltasone] 50 mg PO QDAY #5 tab 04/16/17 Unknown Rx Fluconazole [Diflucan] 150 mg PO ONCE #1 tablet 07/01/17 Unknown Rx medroxyPROGESTERone ACETATE 10 mg PO DAILY #10 tablet 07/01/17 Unknown Rx [Medroxyprogesterone Acetate] metroNIDAZOLE [Flagyl TAB] 500 mg PO Q12HR 7 Days #14 tab 07/01/17 Unknown Rx Metoclopramide [Reglan] 10 mg PO ACHS PRN #30 tablet 07/12/18 Unknown Rx Naproxen [Naprosyn] 500 mg PO BID PRN #30 tablet 07/12/18 Unknown Rx diphenhydrAMINE [Benadryl CAP] 25 mg PO Q6HR PRN #30 capsule 07/12/18 Unknown Rx Fluconazole [Diflucan TAB] 150 mg PO ONCE #1 tablet 03/29/19 Unknown Rx Sulfamethoxazole/Trimethoprim 1 each PO BID 5 Days #10 tablet 03/29/19 Unknown Rx [Bactrim DS TAB] Acetaminophen/Codeine [Tylenol 1 - 2 tab PO Q6H PRN #12 tab 06/09/19 Unknown Rx /Codeine # 3 tab] Ibuprofen [Motrin] 600 mg PO Q8H PRN #24 tablet 06/09/19 Unknown Rx medroxyPROGESTERone ACETATE 10 mg PO DAILY #10 tablet 06/09/19 Unknown Rx [Medroxyprogesterone Acetate] ED Physical Exam - General Limitations: No Limitations General appearance: alert, in no apparent distress - Head Head exam: Present: atraumatic, normocephalic, normal inspection - Eye Eye exam: Present: normal appearance, PERRL, EOMI Pupils: Present: normal accommodation - ENT ENT exam: Present: normal exam, normal orophraynx, mucous membranes moist, TM's normal bilaterally - Neck Neck exam: Present: normal inspection, full ROM. Absent: tenderness - Respiratory Respiratory exam: Present: normal lung sounds bilaterally. Absent: respiratory distress, wheezes, rales, rhonchi, chest wall tenderness, accessory muscle use, decreased breath sounds - Cardiovascular Cardiovascular Exam: Present: regular rate, normal rhythm, normal heart sounds. Absent: systolic murmur, diastolic murmur, rubs, gallop - GI/Abdominal GI/Abdominal exam: Present: soft, tenderness (Palpable moderate suprapubic tenderness), normal bowel sounds. Absent: guarding, rebound, hyperactive bowel sounds, hypoactive bowel sounds - Bi-manual exam: Present: other (Pelvic exam deferred, patient declined.) - Extremities Exam Extremities exam: Present: normal inspection, full ROM, normal capillary refill - Back Exam Back exam: Present: normal inspection, full ROM. Absent: tenderness, CVA ten derness (R), CVA tenderness (L), muscle spasm, paraspinal tenderness, vertebral tenderness - Neurological Exam Neurological exam: Present: alert, oriented X3, CN II-XII intact, normal gait, reflexes normal - Psychiatric Psychiatric exam: Present: normal affect, normal mood - Skin Skin exam: Present: warm, dry, intact, normal color. Absent: rash ED Course Vital Signs 06/09/19 06/09/19 06/09/19 17:12 19:49 19:50 Temperature 97.9 F Pulse Rate 91 H Respiratory 18 18 18 Rate Blood Pressure 127/78 O2 Sat by Pulse 99 Oximetry ED Medical Decision Making - Lab Data Result diagrams: 06/09/19 20:04 06/09/19 20:04 - Medical Decision Making This is a nulliparous 23-year-old -Maur[place] female with a history of chronic metrorrhagia and dysmenorrhea who presented to the ED with persistent severe suprapubic pain with heavy vaginal bleeding for the last 3 days. In the ED, patient is alert and oriented x3 and is not in distress but appears to be in significant pain. Lab test results were reviewed and are all nonactionable except for urinalysis that showed significant blood with no sign of infection. Patient was treated for pain in the ED and discharged home on pain medications and medroxyprogesterone tablet, and was referred to the [facility] physician for further evaluation and 7 to 10 days. Patient was advised to return to the ED immediately if symptoms get worse. - Differential Diagnosis Metrorrhagia; dysmenorrhea; UTI; Ovarian cyst; Fibroids; Critical care attestation.: If time is entered above; I have spent that time in minutes in the direct care of this critically ill patient, excluding procedure time. ED Disposition Clinical Impression: Primary dysmenorrhea, Dysfunctional uterine hemorrhage Disposition: TO HOME OR SELFCARE Is pt being admited?: No Does the pt Need Aspirin: No Condition: Stable Instructions: Dysmenorrhea (ED), Dysfunctional Uterine Bleeding (ED), Menorrhagia (ED) Additional Instructions: Take medications with food, drink plenty of fluids and follow-up with your [facility] physician as advised in 7 to 10 days. Return to the ED immediately if symptoms get worse. Prescriptions: medroxyPROGESTERone ACETATE [Medroxyprogesterone Acetate] 10 mg PO DAILY #10 tablet Ibuprofen [Motrin] 600 mg PO Q8H PRN #24 tablet PRN Reason: Pain Acetaminophen/Codeine [Tylenol /Codeine # 3 tab] 1 - 2 tab PO Q6H PRN #12 tab PRN Reason: Pain , Severe (7-10) Referrals: SOHAIL ARRIOLA MD [Staff Physician] - 7-10 days Time of Disposition: 21:26 Print Language: [place] LUCIAN
== END 2019-06-09 21:33 | disposition home or self-care (01) ==
LOC: ED 16:23
DX: N94.4 Primary dysmenorrhea (principal); N93.8 Other specified abnormal uterine and vaginal bleeding; J45.909 Unspecified asthma, uncomplicated; F17.200 Nicotine dependence, unspecified, uncomplicated; Z79.899 Other long term (current) drug therapy
CPT/HCPCS: 36415; 80053; 81001; 81025; 85025; Q0162

== ENCOUNTER 2020-02-04 11:20 | Emergency (ER) | payer SELFPAY ==
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
[2020-02-04 12:20] LABS: Basophils % (Auto) 0.7 % (0.0-1.8); Eosinophils # (Auto) 0.1 K/mm3 (0.0-0.4); Eosinophils % (Auto) 1.8 % (0.0-4.3); Hematocrit 37.2 % (30.3-42.9); Hemoglobin 12.7 gm/dl (10.1-14.3); Lymphocytes # (Auto) 1.4 K/mm3 (1.2-5.4); Lymphocytes % (Auto) 27.3 % (13.4-35.0); Mean Corpuscular HGB Conc 34 % (30-34); Mean Corpuscular Volume 89 fl (79-97); Monocytes # (Auto) 0.5 K/mm3 (0.0-0.8); Monocytes % (Auto) 9.5 % (0.0-7.3); Platelet Count 326 K/mm3 (140-440); Red Blood Count 4.17 M/mm3 (3.65-5.03); Red Cell Distribution Width 14.9 % (13.2-15.2)
[2020-02-04 12:40] LABS: Blood Urea Nitrogen 9 mg/dL (7-17); Hemolysis Index 7
[2020-02-04 12:41] LABS: BUN/Creatinine Ratio 13
[2020-02-04 13:00] LABS: Bacteria,Urine 1+ /HPF (Negative); Bilirubin,Urine NEG (Negative); Blood,Urine LG (Negative); Color,Urine Yellow (Yellow); Mucus,Urine 2+ /HPF; Protein,Urine >500 mg/dL (Negative); Urobilinogen,Urine < 2.0 mg/dL (<2.0)
[2020-02-04 13:01] LABS: Amphetamine Screen,Urine Negative; Benzodiazepines Screen,Urine Negative; Cocaine Screen,Urine Negative; Methadone Screen,Urine Negative; Opiate Screen,Urine Negative
[2020-02-04] MEDS ORDERED: POTASSIUM CHLORIDE ER 20 MEQ TAB PO ONE (13:06)
[2020-02-04 13:15] LABS: Cannabinoid Screen,Urine Positive
[2020-02-05 08:38] VITALS: BP 138/83
[2020-02-05] MEDS ORDERED: LIDOCAINE (1%) 10 MG/1 ML VIAL 20 ML MDV ONE (09:47)
--- NOTE | 2020-02-05 10:51 | Consultation ---
History of Present Illness - Reason for Consult Consult date: 02/05/20 Reason for consult: SI - History of Present Psychiatric Illness The patient's medical record was reviewed and the patient's chart was discussed with the nursing staff. The nurse note states the patient denies SI/HI/h/v. Donna Childress is a 24y/o female who states she presented to the ER with an as thma attack. She says "I was saying on the phone that I can't breath and felt like I wanted to ." She says, "maybe some people just don't understand how asthma affects you." The patient denies being suicidal or ever having an attempt. She says, "no I don't do any of that and I never have." The patient says "I have seven siblings to live for, and goals. I have to go to work." She says "this is embarrassing to come here for asthma and end up being held for this." She says, "I am not going to hurt myself." The patient admits to being "down at times." She denies any illicit drug use, alcohol or nicotine. She denies hallucinations of any kind. The patient say also denies any psych conditions and seeing a psychiatrist in the past. She denies being on any psychiatric medications. The patient gave me her significant others number to call. I called [facility] at [phone] but it stated she was not able to accept any calls. PAST PSYCHIATRIC HISTORY Diagnoses: Denies Suicide attempts or Self-harm behavior: denies Prior psychiatric hospitalizations: Denies Substance Abuse history: Denies Previous psychiatric medications tried: Denies Outpatient treatment: Denies PAST MEDICAL HISTORY: None reported Family Psychiatric History: None reported or documented SOCIAL HISTORY Marital Status: Single Living Arrangements: Homeless Employment Status: disabled Access to guns/weapons: Denies Education: History of Abuse: Denies Legal History: Denies EVIEW OF SYSTEMS Constitutional: Negative for weight loss ENT: Negative for stridor Respiratory: Negative for cough or hemoptysis All other systems reviewed and are negative MENTAL STATUS EXAMINATION General Appearance and Behavior: Age appropriate, wearing appropriate clothes, good eye contact, calm and cooperative Mood: "fine" Affect and affective range: congruent with mood Thought Process: goal oriented Thought Content: logical Speech: Normal volume, Regular rate and rhythm Suicidal Ideation: Denies Homicidal Ideation: Denies Hallucinations: Denies Delusions: None elicited Impulse Control: normal Insight and Judgment: Limited Memory/Cognition: Limited Attention: Normal Orientation: Alert, oriented Assessment (1) Major Depressive Disorder Plan D/c 1013 Sitter: Defer to primary Medical: Per primary Disposition: Do not Recommend acute inpatient treatment. The patient understands that if suicidal thoughts are feelings of endangerment are to arise, she is to seek immediate attention including but not limited to the crisis hotline, 911 and/or ER. The customer development manager to further discuss safety plan. The customer development manager is to give the patient resources for cognitive behavior therapy, and outpatient psychiatry The patient is to follow up with outpatient psychiatry and/or primary in 7 to 14 days upon discharge Will sign off. Thank you for this consult. Medications and Allergies Allergies Allergy/AdvReac Type Severity Reaction Status Date / Time No Known Allergies Allergy Verified 06/09/19 16:24 Home Medications Medication Instructions Recorded Confirmed Last Taken Type Albuterol Mdi (or & Nicu Only) 2 puff IH QID PRN #1 inhalation 04/16/17 02/04/20 1 Day Ago Rx [Proair] ~02/03/20 Amoxicillin [Trimox CAP] 500 mg PO BID #20 capsule 04/16/17 02/04/20 Unknown Rx predniSONE [Deltasone] 50 mg PO QDAY #5 tab 04/16/17 02/04/20 Unknown Rx Fluconazole [Diflucan] 150 mg PO ONCE #1 tablet 07/01/17 02/04/20 Unknown Rx medroxyPROGESTERone ACETATE 10 mg PO DAILY #10 tablet 07/01/17 02/04/20 Unknown Rx [Medroxyprogesterone Acetate] metroNIDAZOLE [Flagyl TAB] 500 mg PO Q12HR 7 Days #14 tab 07/01/17 02/04/20 Unk nown Rx Metoclopramide [Reglan] 10 mg PO ACHS PRN #30 tablet 07/12/18 02/04/20 Unknown Rx Naproxen [Naprosyn] 500 mg PO BID PRN #30 tablet 07/12/18 02/04/20 Unknown Rx diphenhydrAMINE [Benadryl CAP] 25 mg PO Q6HR PRN #30 capsule 07/12/18 02/04/20 Unknown Rx Fluconazole (Nf) [Diflucan TAB] 150 mg PO ONCE #1 tablet 03/29/19 02/04/20 Unknown Rx Sulfamethoxazole/Trimethoprim 1 each PO BID 5 Days #10 tablet 03/29/19 02/04/20 Unknown Rx [Bactrim DS TAB] Acetaminophen/Codeine [Tylenol 1 - 2 tab PO Q6H PRN #12 tab 06/09/19 02/04/20 Unknown Rx /Codeine # 3 tab] Ibuprofen [Motrin] 600 mg PO Q8H PRN #24 tablet 06/09/19 02/04/20 Unknown Rx medroxyPROGESTERone ACETATE 10 mg PO DAILY #10 tablet 06/09/19 02/04/20 Unknown Rx [Medroxyprogesterone Acetate] Mental Status Exam - Vital signs Last Vital Signs Temp 97.5 F L 02/05/20 08:36 Pulse 97 H 02/05/20 08:36 Resp 20 02/05/20 08:36 BP 138/83 02/05/20 08:36 Pulse Ox 97 02/05/20 08:36 Results Result Diagrams: 02/04/20 11:51 02/04/20 11:51 Abnormal lab results 02/04/20 02/04/20 02/04/20 Range/Units 11:51 11:51 Unknown [place] % (Auto) 9.5 H (0.0-7.3) % Potassium 3.4 L (3.6-5.0) mmol/L Urine WBC (Auto) 7.0 H (0.0-6.0) /HPF All other labs normal.
== END 2020-02-05 12:25 | disposition home or self-care (01) ==
LOC: ED 11:20
DX: F32.9 Major depressive disorder, single episode, unspecified (principal); R45.851 Suicidal ideations; J45.909 Unspecified asthma, uncomplicated; F17.200 Nicotine dependence, unspecified, uncomplicated; Z79.899 Other long term (current) drug therapy
CPT/HCPCS: 36415; 80048; 80307; 80320; 81001; 84703; 85025; G0480